=== PATIENT | male | born 1985 | race African-American/Black ===

== ENCOUNTER 2019-12-11 06:44 | Emergency (ER) | payer SELFPAY ==
[2019-12-11 07:27] LABS: Absolute Lymphocytes (CBC) 2.5 K/uL (0.7-4.9); Basophils % 0.7 % (0-1.3); Hematocrit 40.5 % (39.6-49.0); MPV 7.5 fL (7.6-11.3); RBC Red Blood Cell Count 4.33 M/uL (4.33-5.43)
[2019-12-11] MEDS ORDERED: ONDANSETRON 4 MG/2 ML VIAL ONE (07:27)
[2019-12-11] MEDS ORDERED: NA CHLORIDE 0.9% 1,000 ML ONE (07:27)
[2019-12-11 07:43] LABS: Albumin 3.6 g/dL (3.4-5.0); Bilirubin Direct 0.1 mg/dL (0-0.2); Bilirubin Total 0.4 mg/dL (0.2-1.0); Potassium 3.5 mmol/L (3.5-5.1); Protein, Total 8.4 g/dL (6.4-8.2)
--- NOTE | 2019-12-11 08:26 | RAD REPORT ---
EXAM DESCRIPTION: CTAbdomen Pelvis W Contrast - 12/11/2019 7:53 am CLINICAL HISTORY: Abdominal pain. fever, abd pain COMPARISON: No comparisons TECHNIQUE: Biphasic CT imaging of the abdomen and pelvis was performed with 100 ml non-ionic IV cont rast. All CT scans are performed using dose optimization technique as appropriate and may include automated exposure control or mA/KV adjustment according to patient size. FINDINGS: The lung bases are clear. The liver, spleen, pancreas, adrenal glands and kidneys are within normal limits. No bowel obstruction, free air, free fluid or abscess. Appendectomy. Mild colonic diverticulosis wit hout diverticulitis. No evidence of significant lymphadenopathy. No suspicious bony findings. IMPRESSION: No acute intra-abdominal or pelvic finding.
--- NOTE | 2019-12-11 08:32 | EDPHYS ---
Physician Documentation [facility] Name: Seng Plunkett Age: 34 yrs Sex: Male : 1985 Arrival Date: 12/11/2019 Time: 06:44 Bed 6 Private MD: ED Physician Jabier Dias HPI: 12/10 07:08 This 34 yrs old Black Male presents to ER via Ambulatory with complaints of abdominal rn pain, fever. 07:08 The patient presents with abdominal pain in the left lower quadrant. Onset: The rn symptoms/episode began/occurred 2 day(s) ago. The symptoms do not radiate. Associated signs and symptoms: Pertinent positives: anorexia, diarrhea, fever, Pertinent negatives: dysuria, hematuria, shortness of breath, testicular pain, vomiting. The symptoms are described as crampy, intermittent. Modifying factors: The symptoms are alleviated by nothing, the symptoms are aggravated by touching the area. Severity of pain: At its worst the pain was moderate in the emergency department the pain is unchanged. The patient has not experienced similar symptoms in the past. The patient has not recently seen a physician. Reports abd pain, fever, runny nose, diarrhea, decreased appetite, for 2 days, no sick contacts, normal taste/smell. . Historical: - Allergies: 06:59 Aspirin; ll2 06:59 Ibuprofen; ll2 06:59 Tylenol; ll2 - PMHx: 06:59 Asthma; ll2 - PSHx: 06:59 Hand surgery; ll2 - Immunization history:: Adult Immunizations up to date. - Social history:: Smoking status: Patient reports the use of cigarette tobacco products, smokes one-half pack cigarettes per day. - Family history:: not pertinent. - Hospitalizations: : No recent hospitalization is reported. ROS: 07:08 Constitutional: + fever Eyes: Negative for injury, pain, redness, and discharge, ENT: + rn runny nose and sore throat Neck: Negative for injury, pain, and swelling, Cardiovascular: Negative for chest pain, palpitations, and edema, Respiratory: Negative for shortness of breath, cough, wheezing, and pleuritic chest pain, Abdomen/GI: + abd pain and diarrhea, negative for blood in stool and vomiting MS/Extremity: Negative for injury and deformity, Skin: Negative for injury, rash, and discoloration, Neuro: Negative for headache, numbness, tingling, and seizure. Exam: 07:08 Constitutional: This is a well developed, well nourished patient who is awake, alert, rn and in no acute distress. Head/Face: Normocephalic, atraumatic. Eyes: Pupils equal round and reactive to light, extra-ocular motions intact. Lids and lashes normal. Conjunctiva and sclera are non-icteric and not injected. Cornea within normal limits. Periorbital areas with no swelling, redness, or edema. ENT: no stridor Cardiovascular: Regular rate and rhythm. No pulse deficits. Respiratory: Speaking full sentences, unlabored. No increased work of breathing, no retractions or nasal flaring. Abdomen/GI: soft, mild left sided abd tenderness, no distension, no rebound/peritoneal signs. Skin: Warm, dry MS/ Extremity: Pulses equal, no cyanosis. Neurovascular intact. Full, normal range of motion. Equal circumference. Neuro: Awake and alert, GCS 15 Vital Signs: 06:57 BP 133 / 93; Pulse 97; Resp 18; Temp 98.2; Pulse Ox 97% on R/A; Weight 86.18 kg; Height ll2 6 ft. 0 in. (182.88 cm); 08:00 BP 130 / 90; Pulse 94; Resp 17; Pulse Ox 98% ; rb1 09:00 BP 133 / 88; Pulse 80; Resp 18; Pulse Ox 100% ; rb1 06:57 Body Mass Index 25.77 (86.18 kg, 182.88 cm) ll2 MDM: 06:59 Patient medically screened. rn 08:30 Differential diagnosis: non-specific abd pain, pancreatitis, appendicitis, strep, flu, rn viral syndrome. Data reviewed: vital signs, nurses notes, lab test result(s), radiologic studies, CT scan, and as a result, I will discharge patient. Counseling: I had a detailed discussion with the patient and/or guardian regarding: the historical points, exam findings, and any diagnostic results supporting the discharge/admit diagnosis, lab results, radiology results, the need for outpatient follow up, to return to the emergency department if symptoms worsen or persist or if there are any questions or concerns that arise at home. Special discussion: I discussed with the patient/guardian in detail that at this point there is no indication for admission to the hospital. It is understood, however, that if the symptoms persist or worsen the patient needs to return immediately for re-evaluation. 12/10 07:07 Order name: Basic Metabolic Panel; Complete Time: 08:30 rn 12/10 07:07 Order name: CBC with Diff; Complete Time: 08:30 rn 12/10 07:07 Order name: Hepatic Function; Complete Time: 08:30 rn 12/10 07:07 Order name: Lipase; Complete Time: 08:30 rn 12/10 07:07 Order name: Flu; Complete Time: 08:30 rn 12/10 07:07 Order name: COVID-19 rn 12/10 07:07 Order name: IV Saline Lock; Complete Time: 07:29 rn 12/10 07:07 Order name: Labs collected and sent; Complete Time: 07: rn 12/10 07:07 Order name: CT Abd/Pelvis - IV Contrast Only; Complete Time: 08:30 rn 12/10 07:07 Order name: Strep; Complete Time: 08:30 rn 12/10 09:12 Order name: CREATININE WHOLE BLOOD EDMS Administered Medications: 07:25 Drug: NS 0.9% 1000 ml Route: IV; Rate: 1000 ml; Site: right antecubital; rb1 08:04 Follow up: IV Status: Completed infusion rb1 09:13 Not Given (Patient Refused): Zofran (Ondansetron) 4 mg IVP once; over 2 minutes rb1 Disposition: 12/11/19 08:31 Discharged to Home. Impression: Streptococcal pharyngitis. - Condition is Stable. - Discharge Instructions: Pharyngitis, Strep Throat, Upper Respiratory Infection, Adult. - Prescriptions for Augmentin 875- 125 mg Oral Tablet - take 1 tablet by ORAL route every 12 hours for 10 days; 20 tablet. - Medication Reconciliation Form, Thank You Letter, Antibiotic Education, Prescription Opioid Use form. - Follow up: Private Physician; When: As needed; Reason: Recheck today's complaints, Re-evaluation by your physician. - Problem is new. - Symptoms have improved. Signatures: Dispatcher [employer] EDMS Jabier Dias MD MD rn Barber, Rebecca, RN RN rb1 Ayesha Inman RN RN ll2 Corrections: (The following items were deleted from the chart) 09:16 08:31 12/11/2019 08:31 Discharged to Home. Impression: Streptococcal pharyngitis. rb1 Condition is Stable. Forms are Medication Reconciliation Form, Thank You Letter, Antibiotic Education, Prescription Opioid Use. Follow up: Private Physician; When: As needed; Reason: Recheck today's complaints, Re-evaluation by your physician. Problem is new. Symptoms have improved. rn
--- NOTE | 2019-12-11 08:32 | ER ---
Nurse's Notes [facility] Name: Seng Plunkett Age: 34 yrs Sex: Male : 1985 Arrival Date: 12/11/2019 Time: 06:44 Bed 6 Private MD: Diagnosis: Streptococcal pharyngitis Presentation: 12/10 06:57 Chief complaint: Patient states: Reports stomach pain, runny nose and fever for the ll2 past two days. Coronavirus screen: Client presents with at least one sign or symptom that may indicate coronavirus-19. Standard/surgical mask placed on the client. Provider contacted for isolation considerations. Ebola Screen: No symptoms or risks identified at this time. Initial Sepsis Screen: Does the patient meet any 2 criteria? No. Patient's initial sepsis screen is negative. Does the patient have a suspected source of infection? No. Patient's initial sepsis screen is negative. Risk Assessment: Do you want to hurt yourself or someone else? Patient reports no desire to harm self or others. Onset of symptoms was December 11, 2019. 06:57 Method Of Arrival: Ambulatory ll2 06:57 Acuity: CARMINA 3 ll2 Triage Assessment: 06:59 General: Appears uncomfortable, Behavior is calm, cooperative, appropriate for age. ll2 Pain: Complains of pain in abdomen. Historical: - Allergies: 06:59 Aspirin; ll2 06:59 Ibuprofen; ll2 06:59 Tylenol; ll2 - PMHx: 06:59 Asthma; ll2 - PSHx: 06:59 Hand surgery; ll2 - Immunization history:: Adult Immunizations up to date. - Social history:: Smoking status: Patient reports the use of cigarette tobacco products, smokes one-half pack cigarettes per day. - Family history:: not pertinent. - Hospitalizations: : No recent hospitalization is reported. Screenin:58 Abuse screen: Denies threats or abuse. Nutritional screening: No deficits noted. ll2 Tuberculosis screening: No symptoms or risk factors identified. Fall Risk None identified. Assessment: 07:00 General: Appears in no apparent distress. comfortable, Behavior is calm, cooperative, rb1 Reports fever for x 2 days. Pt. reports feeling hot, but did not measure his temperature. Pain: Complains of pain in left upper quadrant Pain currently is 10 out of 10 on a pain scale. Pain began x 2 days. Neuro: Level of Consciousness is awake, alert, obeys commands, Oriented to person, place, time, situation. Cardiovascular: Capillary refill < 3 seconds Patient's skin is warm and dry. Respiratory: Airway is patent Respiratory effort is even, unlabored, Respiratory pattern is regular, symmetrical. GI: No signs and/or symptoms were reported involving the gastrointestinal system. : No signs and/or symptoms were reported regarding the genitourinary system. EENT: Reports Runny nose. 08:00 Reassessment: Patient appears in no apparent distress at this time. No changes from rb1 previously documented assessment. 09:00 Reassessment: Patient appears in no apparent distress at this time. Patient and/or rb1 family updated on plan of care and expected duration. Pain level reassessed. Patient is alert, oriented x 3, equal unlabored respirations, skin warm/dry/pink. Vital Signs: 06:57 BP 133 / 93; Pulse 97; Resp 18; Temp 98.2; Pulse Ox 97% on R/A; Weight 86.18 kg; Height ll2 6 ft. 0 in. (182.88 cm); 08:00 BP 130 / 90; Pulse 94; Resp 17; Pulse Ox 98% ; rb1 09:00 BP 133 / 88; Pulse 80; Resp 18; Pulse Ox 100% ; rb1 06:57 Body Mass Index 25.77 (86.18 kg, 182.88 cm) ll2 ED Course: 06:44 Patient arrived in ED. bp1 06:58 Triage completed. ll2 06:58 Arm band placed on right wrist. Patient placed in an exam room, on a stretcher, on ll2 pulse oximetry. 06:58 Patient has correct armband on for positive identification. Bed in low position. Call ll2 light in reach. Pulse ox on. NIBP on. 06:59 Jabier Dias MD is Attending Physician. rn 07:09 Madelyn Diaz, GARDENIA is Primary Nurse. rb1 07:15 Initial lab(s) drawn, by me, sent to lab. Inserted saline lock: 20 gauge in right aa5 antecubital area, using aseptic technique. Blood collected. 07:53 CT Abd/Pelvis - IV Contrast Only In Process Unspecified. EDMS 09:15 No provider procedures requiring assistance completed. IV discontinued, intact, rb1 bleeding controlled, No redness/swelling at site. Pressure dressing applied. Administered Medications: 07:25 Drug: NS 0.9% 1000 ml Route: IV; Rate: 1000 ml; Site: right antecubital; rb1 08:04 Follow up: IV Status: Completed infusion rb1 09:13 Not Given (Patient Refused): Zofran (Ondansetron) 4 mg IVP once; over 2 minutes rb1 Outcome: 08:31 Discharge ordered by . rn 09:15 Discharged to home ambulatory. rb1 09:15 Condition: stable 09:15 Discharge instructions given to patient, Instructed on discharge instructions, follow up and referral plans. medication usage, Demonstrated understanding of instructions, follow-up care, medications, Prescriptions given X 1. 09:16 Patient left the ED. rb1 Signatures: Dispatcher [employer] EDMS Jabier Dias MD MD rn Calderon, Audri, RN RN aa5 Madelyn Diaz, RN RN rb1 Ayesha Inman, RN RN ll2 Sofía Whitten bp1
[2019-12-11 09:26] VITALS: TEMP 98.2
[2019-12-11 09:28] VITALS: BP 133/88; O2SAT 100
== END 2019-12-11 09:16 | disposition home or self-care (01) ==
LOC: ER 06:44
DX: J02.0 Streptococcal pharyngitis (principal); R10.32 Left lower quadrant pain; F17.210 Nicotine dependence, cigarettes, uncomplicated; Z20.828 Contact with and (suspected) exposure to other viral communicable diseases; Z88.6 Allergy status to analgesic agent
CPT/HCPCS: 36415; 74177; 80048; 80076; 82565; 83690; 85025; 87081; 87804; 96360; 99284; J2405; J7030; Q9967; U0002